=== PATIENT | male | born 2000 | race Caucasian/White ===

== ENCOUNTER 2018-03-22 14:54 | Emergency (ER) | payer OTHER ==
[2018-03-22] MEDS: IBUPROFEN 600 MG TAB PO (15:55)
== END 2018-03-22 16:43 | disposition home or self-care (01) ==
LOC: M ED 14:54
DX: S80.01XA Contusion of right knee, initial encounter (principal); W17.89XA Other fall from one level to another, initial encounter; Y92.89 Other specified places as the place of occurrence of the external cause; Y99.0 Civilian activity done for income or pay; Z77.098 Contact with and (suspected) exposure to other hazardous, chiefly nonmedicinal, chemicals
CPT/HCPCS: 73552